=== PATIENT | male | born 1965 | race Caucasian/White ===

== ENCOUNTER 2018-03-04 10:29 | Emergency (ER) | payer OTHER ==
[~2018-03-04] VITALS: Ht 185.4 cm; Wt 99.8 kg
[2018-03-04 10:42] VITALS: BP 125/72
[2018-03-04 11:19] LABS: APPEARANCE,URINE SLIGHTLY CLOUDY; BILIRUBIN, URINE NEGATIVE (NEGATIVE); GLUCOSE, URINE (UA) NEGATIVE (NEGATIVE); KETONES,URINE 1+ (NEGATIVE); LEUKOCYTE ESTERASE ,URINE 2+ (NEGATIVE); NITRITE,URINE NEGATIVE (NEGATIVE); PH,URINE 6 (4.5-8.0); PROTEIN,URINE 3+ (NEGATIVE); UROBILINOGEN,URINE 4 MG/DL (0.0-1.0)
[2018-03-04 11:32] LABS: COLOR,URINE YELLOW
[2018-03-04] MEDS ORDERED: CEPHALEXIN500 MG ORAL (12:05)
[2018-03-04 12:09] VITALS: BP 125/72
--- NOTE | 2018-03-04 15:43 | Emergency Room Report ---
History of Present Illness General Chief Complaint: Male Urogenital Problems Source: Patient Present Illness HPI Patient's 52-year-old male who presented after increased bleeding from Medina catheter site. Patient gradual onset of symptoms. Patient reports having recently had a Medina catheter placed after urinary retention. He was started on IV antibiotics. Patient had noticed leaking of urine externally to the Medina. He reports having some continued urine output from Medina catheter. He denies any current fever but had been having fever over 1 day prior to arrival. He had been given IV Rocephin at [facility]. He was given prescription for ciprofloxacin. Allergies: Coded Allergies: No Known Allergies (Unverified , 03/04/18) Patient History Past Medical History: see triage record Reviewed Nursing Documentation: PMH: Agreed; PSxH: Agreed Nursing Documentation-PM Past Medical History: No History, Except For Hx Cardiac Problems: Yes - Heart Attack, stent placement 2017, high cholesterol Hx Hypertension: Yes Hx Cancer: Yes - Bladder cancer Review of Systems All Other Systems: negative except mentioned in HPI Physical Exam Vital Signs Date Time Temp Pulse Resp B/P (MAP) Pulse Ox O2 Delivery O2 Flow Rate FiO2 03/04/18 10:32 100.3 79 18 125/72 95 Room Air 100.2 General Appearance: well appearing, no apparent distress, alert, GCS 15 Head: normocephalic, atraumatic ENT: hearing grossly normal, normal voice Neck: full range of motion, supple Respiratory: no respiratory distress, speaking full sentences Cardiovascular #1: normal inspection, regular rate, rhythm Musculoskeletal: no calf tenderness Neurologic: normal inspection, alert, oriented x3, responsive, normal gait Psychiatric: mood/affect normal Skin: no rash Medical Decision Making Diagnostic Impression: Primary Impression: Medina catheter in place Additional Impression: Urinary tract infection ER Course Patient presented for dysuria. Differential diagnosis included was not limited to appendicitis, urinary tract infection, urinary retention, urethritis, herpes among others.Because of complexity of patient's case laboratory testing and imaging studies were ordered.Medina catheter appears to be somewhat malfunctioning. Patient catheter was changed.the patient given prescription for Keflex.The patient is advised to follow up with primary care doctor in 1-2 days. Patient is advised to return if any worsening condition or if any changes in status that are concerning. This report is dictated with [employer] dockmaster software which may occasionally lead to discrepancies related to use of this software. Labs Test 03/04/18 11:00 Urine Color Yellow Urine Appearance Slightly cloudy Urine pH 6 (4.5-8.0) Urine Specific [place] 1.020 (1.005-1.035) Urine Protein 3+ (NEGATIVE) Urine Glucose (UA) Negative (NEGATIVE) Urine Ketones 1+ (NEGATIVE) Urine Blood 5+ (NEGATIVE) Urine Nitrite Negative (NEGATIVE) Urine Bilirubin Negative (NEGATIVE) Urine Urobilinogen 4 MG/DL (0.0-1.0) Urine Leukocyte Esterase 2+ (NEGATIVE) Urine RBC 30-40 /HPF (0 - 0) Urine WBC 10-15 /HPF (0 - 0) Urine Squamous Epithelial Cells Occasional /LPF Urine Bacteria Occasional /HPF (NONE) Last Vital Signs Date Time Temp Pulse Resp B/P (MAP) Pulse Ox O2 Delivery O2 Flow Rate FiO2 03/04/18 12:09 100.2 18 125/72 95 Room Air 100.2 03/04/18 10:32 79 Status: improved Disposition: HOME, SELF-CARE Condition: Stable Scripts Cephalexin* (KEFLEX*) 500 Mg Capsule 500 MG ORAL EVERY 12 HOURS, #28 CAP 0 Refills Prov: Allan Villalobos MD 03/04/18 Patient Instructions: Urinary Tract Infection Allan Villalobos MD Mar 04, 2018 15:43
== END 2018-03-04 12:10 | disposition home or self-care (01) ==
LOC: EMR 10:45
DX: T83.038A Leakage of other urinary catheter, initial encounter (principal); N39.0 Urinary tract infection, site not specified; I10 Essential (primary) hypertension; F17.200 Nicotine dependence, unspecified, uncomplicated; E78.00 Pure hypercholesterolemia, unspecified; I25.2 Old myocardial infarction; Z85.51 Personal history of malignant neoplasm of bladder
CPT/HCPCS: 51702; 81003; 87086; 99283